=== PATIENT | female | born 1980 | race Caucasian/White ===

== ENCOUNTER → 2020-10-08 | Outpatient (CLI) | payer OTHER ==
--- NOTE | 2020-10-13 11:23 | MM ---
Reason for exam: screening (asymptomatic). Last mammogram was performed 10 years and 9 months ago. History: Family history of breast cancer in grandmother. Taking hormonal contraceptives for 1 year beginning at age 28. Physical Findings: A clinical breast exam by your physician is recommended on an annual basis and results should be correlated with mammographic findings. MG Screening Mammo w CAD Bilateral CC and MLO view(s) were taken. Prior study comparison: January 06, 2010, bilateral diagnostic digital mammog. There are scattered fibroglandular densities. No significant changes when compared with prior studies. ASSESSMENT: Negative, BI-RAD 1 RECOMMENDATION: Routine screening mammogram of both breasts in 1 year.
== END | disposition home or self-care (01) ==
LOC: RADMAMWWP 16:10
PROVIDERS: ATTEND Obstetrics & Gynecology
DX: Z12.31 Encounter for screening mammogram for malignant neoplasm of breast (principal); Z80.3 Family history of malignant neoplasm of breast
CPT/HCPCS: 77067

== ENCOUNTER 2023-09-07 07:43 | Day surgery (SDC) | payer BC, OTHER ==
[~2023-09-07 07:43] MED LIST: LACTATED RINGERS 1,000 ML IV SCH
[2023-09-07] MEDS: IV FLUID CONTINUATION 1,000 ML IV ONE (08:07)
[2023-09-07 08:19] VITALS: RESP 16; TEMP 97.4
--- NOTE | 2023-09-07 08:30 | P.GSHP ---
History of Present Illness H&P Date: 09/07/23 CHIEF COMPLAINT: Colon screen HISTORY OF PRESENT ILLNESS: The patient is a 43-year-old female who presents for colon screen. Lower endoscopy was offered for further evaluation and management. PAST MEDICAL HISTORY: Please see list. PAST SURGICAL HISTORY: Please see list. MEDICATIONS: Please see list. ALLERGIES: Please see list. SOCIAL HISTORY: No illicit drug use FAMILY HISTORY: No reports of Crohn disease or ulcerative colitis. REVIEW OF ORGAN SYSTEMS: CONSTITUTIONAL: No reports of fevers or chills. PHYSICAL EXAM: VITAL SIGNS: Stable GENERAL: Well-developed pleasant in no acute distress. HEENT: No scleral icterus. Extraocular movements grossly intact. Moist buccal mucosa. NECK: Supple without lymphadenopathy. CHEST: Unlabored respirations. Equal bilateral excursions. CARDIOVASCULAR: Regular rate and rhythm. Distal 2+ pulses. ABDOMEN: Soft, nontender, nondistended. MUSCULOSKELETAL: No clubbing, cyanosis, or edema. ASSESSMENT: 1. Colon screen. PLAN: 1. Recommend proceeding with a lower endoscopy Past Medical History Past Medical History: GERD/Reflux, Rheumatoid Arthritis (RA) Additional Past Medical History / Comment(s): recent root canal finishing antiobiotic 09/05/23. hx of heart murmur. JRA. History of Any Multi-Drug Resistant Organisms: None Reported Past Surgical History: Section Additional Past Surgical History / Comment(s): left ankle fx repair. 3 c sections Past Anesthesia/Blood Transfusion Reactions: Postoperative Nausea & Vomiting (PONV) Smoking Status: Former smoker - Past Family History Mother Family Medical History: No Reported History Medications and Allergies Home Medications Medication Instructions Recorded Confirmed Type Cariprazine HCl [Vraylar] 3 mg PO DAILY 09/05/23 09/07/23 History DULoxetine HCL [Cymbalta] 60 mg PO BID 09/05/23 09/07/23 History Ergocalciferol [Vitamin D2 (1250 1,250 mcg PO Q7D 09/05/23 09/07/23 History Mcg = 41760 Iu)] LORazepam [Lorazepam] 0.5 mg PO BID PRN 09/05/23 09/07/23 History Levonor/Eth 1 tab PO DAILY 09/05/23 09/07/23 History Unk Motrin 1 tab PO DIRECTED PRN 09/05/23 09/07/23 History Unk Tums 1 tab PO DIRECTED PRN 09/05/23 09/07/23 History Allergies Allergy/AdvReac Type Severity Reaction Status Date / Time No Known Allergies Allergy Verified 09/07/23 08:14 Surgical - Exam Vital Signs Temp Pulse Resp BP Pulse Ox 97.4 F L 64 16 122/72 96 09/07/23 08:18 09/07/23 08:18 09/07/23 08:18 09/07/23 08:18 09/07/23 08:18
[2023-09-07] MEDS ORDERED: PROPOFOL 10 MG/ML 20 ML VIAL IV ONE (08:37)
--- NOTE | 2023-09-07 08:56 | P.PCN ---
Date of Procedure: 09/07/23 Description of Procedure: PREOPERATIVE DIAGNOSIS: Colonoscopy screening. POSTOPERATIVE DIAGNOSIS: Colonoscopy screening. OPERATION: Colonoscopy to the cecum, ileocecal valve and appendiceal orifice. SURGEON: Deysi Raman MD. ANESTHESIA: MAC. INDICATIONS: The patient is a 43-year-old female who presents for first colonoscopy screening. Benefits and risks were described and informed consent was obtained. DESCRIPTION OF PROCEDURE: The patient had undergone Sutab prep. The patient had been brought into the operating room and laid in the left lateral decubitus position. After adequate intravenous sedation, the rectum was examined with 2% lidocaine jelly. No external hemorrhoids were encountered. The rectal tone was within normal limits. No lesions were palpated in the rectal vault. An Olympus colonoscope was advanced until the cecum, ileocecal valve and appendiceal orifice were clearly viewed. The prep was excellent. Scattered diverticulosis was encountered. No colonic polyps were found. No evidence of focal colitis was found. Retroflexion of the scope demonstrated grade 1 internal hemorrhoids without active bleeding or inflammation. The colon was desufflated. The patient had tolerated the procedure well. Withdrawal time was over 6 minutes. FINDINGS: Aronchick preparation quality scale 1 (1-5) Internal hemorrhoids, grade 1 No external prolapsed hemorrhoids. No arteriovenous malformations. No adenomatous polyps. No focal colitis. RECOMMENDATIONS: Lower endoscopy in 10 years, 2033 Plan - Discharge Summary Discharge Rx Participant: No New Discharge Prescriptions: Continue Ergocalciferol [Vitamin D2 (1250 Mcg = 77031 Iu)] 1,250 mcg PO Q7D Unk Motrin 1 tab PO DIRECTED PRN PRN Reason: Pain Levonor/Eth 1 tab PO DAILY LORazepam 0.5 mg PO BID PRN PRN Reason: Anxiety DULoxetine HCL [Cymbalta] 60 mg PO BID Cariprazine HCl [Vraylar] 3 mg PO DAILY Unk Tums 1 tab PO DIRECTED PRN PRN Reason: Heartburn Discharge Medication List Cariprazine HCl [Vraylar] 3 mg PO DAILY 09/05/23 [History] DULoxetine HCL [Cymbalta] 60 mg PO BID 09/05/23 [History] Ergocalciferol [Vitamin D2 (1250 Mcg = 10169 Iu)] 1,250 mcg PO Q7D 09/05/23 [History] LORazepam 0.5 mg PO BID PRN 09/05/23 [History] Levonor/Eth 1 tab PO DAILY 09/05/23 [History] Unk Motrin 1 tab PO DIRECTED PRN 09/05/23 [History] Unk Tums 1 tab PO DIRECTED PRN 09/05/23 [History] Follow up Appointment(s)/Referral(s): Deysi Raman MD [STAFF PHYSICIAN] - As Needed Patient Instructions/Handouts: Moderate Sedation (DC), Colonoscopy (GEN) Activity/Diet/Wound Care/Special Instructions: Repeat colonoscopy in 10 years2033 Discharge Disposition: HOME SELF-CARE
[2023-09-07 09:15] VITALS: BP 115/74; PULSE 65
== END 2023-09-07 09:37 | disposition home or self-care (01) ==
LOC: ORWHC2ENDO 07:43
PROVIDERS: ATTEND Surgery Plastic and Reconstructive Surgery
DX: Z12.11 Encounter for screening for malignant neoplasm of colon (principal); K57.30 Diverticulosis of large intestine without perforation or abscess without bleeding; K64.0 First degree hemorrhoids; K21.9 Gastro-esophageal reflux disease without esophagitis; M06.9 Rheumatoid arthritis, unspecified; Z87.891 Personal history of nicotine dependence; Z79.899 Other long term (current) drug therapy
CPT/HCPCS: 81025; 45378; J2704

== ENCOUNTER → 2024-02-28 | Outpatient (CLI) | payer BC ==
[2024-02-28 09:12] VITALS: RESP 16; TEMP 97.3
--- NOTE | 2024-02-28 09:40 | P.HPOB ---
History of Present Illness H&P Date: 02/28/24 Chief Complaint: The patient is here for her routine gynecologic exam. This is a 44-year-old -0-0-2 with an LMP of November 2023. She is on semicontinuous oral contraception. She is here to establish with this office. It has been about 1 year since her last pelvic exam. She previously saw Dr. Nguyễn for her gynecologic care. She states she had a history of heavy and painful periods and she was started on the semicontinuous oral contraception for this reason in the past. She has done well with this form of oral contraception. She is without gynecologic complaints. She has menstrual periods about every 3 months with the semicontinuous oral contraception. He is taking the generic form of Seasonique. Review of Systems The patient's weight has been stable over the last year. She denies respiratory, cardiac, or G.I. problems. Past Medical History Past Medical History: GERD/Reflux, Rheumatoid Arthritis (RA) Additional Past Medical History / Comment(s): hx of heart murmur. Juvenile RA. 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 History of Any Multi-Drug Resistant Organisms: None Reported Past Surgical History: Section Additional Past Surgical History / Comment(s): left ankle fx repair. 3 c sections. Colonoscopy 2023(next after 5yr). Past Anesthesia/Blood Transfusion Reactions: Postoperative Nausea & Vomiting (PONV) Past Psychological History: Anxiety, Depression Smoking Status: Former smoker, Vaper (Vapes daily.) Past Alcohol Use History: Occasional (About 5 drinks per month.) Additional Past Alcohol Use History / Comment(s): quit smoking 2019 Past Drug Use History: Marijuana (Does not smoke daily.) Additional History: She is . She has been with her fianc since about 2013 and they live together. 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 - Past Family History Mother Additional Family Medical History / Comment(s): Some type of autoimmune disorder. Maternal grandmother had breast cancer. Father Family Medical History: Diabetes Mellitus Additional Family Medical History / Comment(s): Colon polyps removed. A paternal grandmother had a colon resection for an unknown reason. Medications and Allergies Home Medications Medication Instructions Recorded Confirmed Type Cariprazine HCl [Vraylar] 3 mg PO DAILY 09/05/23 09/07/23 History DULoxetine HCL [Cymbalta] 60 mg PO BID 09/05/23 09/07/23 History Ergocalciferol [Vitamin D2 (1250 1,250 mcg PO Q7D 09/05/23 09/07/23 History Mcg = 49887 Iu)] Levonor/Eth 1 tab PO DAILY 09/05/23 09/07/23 History Unk Motrin 1 tab PO DIRECTED PRN 09/05/23 09/07/23 History Unk Tums 1 tab PO DIRECTED PRN 09/05/23 09/07/23 History Allergies Allergy/AdvReac Type Severity Reaction Status Date / Time No Known Allergies Allergy Verified 02/28/24 08:54 Exam Vital Signs Temp Resp 02/28/24 08:56 97.3 F L 16 Intake and Output 02/27/24 02/28/24 02/28/24 22:59 06:59 14:59 Other: Weight 90.265 kg Height 5 feet 5 inches, weight 199 pounds, BMI 33.1. This is a well-developed well-nourished white female who is alert and oriented times 3 in no acute distress. HEENT: Within normal limits. NECK: Supple without mass or thyromegaly. CHEST AND LUNGS: Clear to auscultation. HEART: Regular rate and rhythm. BREASTS: Are without mass or discharge. AXILLARY EXAM: Negative for adenopathy. BACK: Negative for CVA tenderness. ABDOMEN: Soft, nontender, without palpable masses. PELVIC EXAM: Normal external genitalia. Cervix and vagina appear normal. The cervix appears nulliparous. There is no unusual discharge. There is no evidence of prolapse. The uterus is midposition, nongravid size and nontender. There are no palpable adnexal masses or tenderness. RECTAL EXAM: negative for mass or tenderness and is negative for occult blood. EXTREMITIES: Nontender. IMPRESSION: 1. 44-year-old gynecologically healthy female doing well on semicontinuous oral contraception. 2. History of hypermenorrhea and dysmenorrhea improved with semicontinuous oral contraception. PLAN: 1. Pap smear cotest was performed. 2. Self breast awareness was discussed with the patient. We have also discussed symptoms associated with inflammatory breast cancer. 3. The patient is scheduled for a screening mammogram on 03/01/2024. The order slip was given to the patient for this. 4. Osteoporosis prevention was discussed. I have stressed the importance of adequate calcium, vitamin D and regular exercise. Recommended amounts of calcium and vitamin D were also discussed. 5. Prescription for Seasonique semicontinuous oral contraception will be sent to [facility] pharmacy on . 6. She was advised to return in one year for her annual well woman exam.
== END ==
LOC: WWCWWP 08:34
PROVIDERS: ATTEND Obstetrics & Gynecology
DX: Z87.42 Personal history of other diseases of the female genital tract (principal)

== ENCOUNTER → 2024-02-29 | Outpatient (CLI) | payer BC ==
--- NOTE | 2024-03-01 10:02 | MM ---
Reason for Exam: Screening (asymptomatic). Last mammogram was performed 3 year(s) and 5 month(s) ago. Patient History: Menarche at age 11. First Full-Term at age 20. Patient has history of breast feeding. Currently using Hormonal Contraceptives, beginning at age 28 for 1 year. Maternal grandmother had breast cancer. Last menstrual period: 12/04/2023 Risk Values: Sapna 5 year model risk: 0.8%. NCI Lifetime model risk: 8.5%. Prior Study Comparison: 01/06/2010 Bilateral Diagnostic Mammogram, [facility]. 10/08/2020 Bilateral Screening Mammogram, [facility]. Tissue Density: There are scattered areas of fibroglandular density. Findings: Analyzed By CAD. Benign-appearing bilateral axillary lymph nodes are now present. There is no suspicious group of microcalcifications or new suspicious mass in either breast. Overall Assessment: Negative, BI-RAD 1 Management: Screening Mammogram of both breasts in 1 year. . Patient should continue monthly self-breast exams. A clinical breast exam by your physician is recommended on an annual basis. This exam should not preclude additional follow-up of suspicious palpable abnormalities. Note on Sapna scores and lifetime risk: 1. A Sapna score greater than 3% is considered moderate risk. If this is the case, consider specialist referral to assess eligibility for a risk reducing agent. 2. If overall lifetime risk for the development of breast cancer is 20% or higher, the patient may qualify for future screening with alternating mammogram and breast MRI. [facility], , 03/01/2024 9:58 AM. Electronically signed and approved by: Carson Rosenberg M.D.
== END | disposition home or self-care (01) ==
LOC: RADMAMWWP 15:48
PROVIDERS: ATTEND Obstetrics & Gynecology
DX: Z12.31 Encounter for screening mammogram for malignant neoplasm of breast (principal); R92.323 Mammographic fibroglandular density, bilateral breasts; Z80.3 Family history of malignant neoplasm of breast
CPT/HCPCS: 77067